=== PATIENT | male | born 1985 | race Caucasian/White ===

== ENCOUNTER 2017-02-04 16:54 | Emergency (ER) | payer SELFPAY ==
[~2017-02-04] VITALS: Ht 154.9 cm; Wt 74.8 kg
[~2017-02-04 16:54] MED LIST: 'PARAFON FORTE500 M1 PO; ANTIBIOTIC O500 U/GM TP; AUGMENTIN 875875 MG PO; BACTRIM DS 8001 TA1 PO; KEFLEX500 MG PO; NAPROSYN500 MG PO; PERCOCET 325 MG1 TA2 PO
== END 2017-02-04 19:48 | disposition home or self-care (01) ==
LOC: ED 16:54
DX: T40.2X1A Poisoning by other opioids, accidental (unintentional), initial encounter (principal); F17.200 Nicotine dependence, unspecified, uncomplicated; Y92.9 Unspecified place or not applicable

== ENCOUNTER 2018-02-11 21:54 | Emergency (ER) | payer SELFPAY ==
[~2018-02-11] VITALS: Ht 180.3 cm; Wt 80.7 kg
[2018-02-11] MEDS ORDERED: IBUPROFEN600 MG PO (23:39)
[2018-02-11] MEDS ORDERED: ROBAXIN500 M1 PO (23:39)
== END 2018-02-11 23:56 | disposition home or self-care (01) ==
LOC: ED 21:54
DX: S33.5XXA Sprain of ligaments of lumbar spine, initial encounter (principal); S23.8XXA Sprain of other specified parts of thorax, initial encounter; X50.1XXA Overexertion from prolonged static or awkward postures, initial encounter; Y93.89 Activity, other specified; Y92.69 Other specified industrial and construction area as the place of occurrence of the external cause; Y99.9 Unspecified external cause status